=== PATIENT | male | born 1975 | race Two or more races ===

== ENCOUNTER → 2020-06-11 | Outpatient (CLI) | payer OTHER ==
--- NOTE | 2020-06-11 17:43 | KCIC ---
XR CHEST 1V 06/11/2020 8:45 AM INDICATION: TB exposure COMPARISON: None available TECHNIQUE: Portable frontal view of the chest is provided. FINDINGS: The cardiomediastinal silhouette is within normal limits. Micrograms or changes are identified within the perihilar distribution. There is patchy linear opacities identified in the right upper lobe with suggestion of atelectasis of the right upper lobe and scarring/atelectasis. There is mild retraction of the michelle superiorly on the right. There are no significant pleural effusions. There is no pulmonary vascular congestion. No pneumothora x. No suspicious osseous abnormality. IMPRESSION: Micronodular changes are identified within the perihilar distribution with scarring and atelectasis i n the right upper lobe. Findings could reflect sequela of tuberculosis. Further evaluation with CT ch est is recommended. Correlate with any signs or symptoms of active infection. Electronically signed by: Carito Navarro MD (06/11/2020 5:40 PM) [id number]
== END ==
LOC: KCIC 08:42
PROVIDERS: ATTEND Family Medicine
DX: Z20.1 Contact with and (suspected) exposure to tuberculosis (principal)
CPT/HCPCS: 71045